=== PATIENT | female | born 1930 | race Caucasian/White ===

== ENCOUNTER → 2016-06-15 | Outpatient (CLI) | payer MEDICARE, OTHER ==
[2015-05-29 15:10] VITALS: BP 135/65
[~2016-06-15] MED LIST: BISM525O8 PO; ONDA4TAB7 PO
--- NOTE | 2016-06-15 09:08 | RAD ---
Chest, 2 views, 06/15/2016: History: Productive cough, upper back pain Comparison is made to a study from 05/29/2015. The heart size and pulmonary vascularity are normal. There are mild scattered parenchymal scars. No pulmonary consolidation is seen. There is no evidence of pleural fluid. Moderate spurring is present in the spine. IMPRESSION: No acute cardiopulmonary abnormality is detected.
== END | disposition home or self-care (01) ==
LOC: DXRADRC 07:29
PROVIDERS: ATTEND Physician Assistant
DX: R05 Cough (principal); M54.9 Dorsalgia, unspecified
CPT/HCPCS: 71020

== ENCOUNTER 2016-08-08 09:48 | Inpatient (IN) | payer MEDICARE, BC, OTHER ==
[~2016-08-08] VITALS: Ht 157.5 cm; Wt 78.1 kg
--- NOTE | 2016-08-08 10:25 | RAD ---
Indication: Chest pain. Time of exam 10:18 AM Correlation is made with prior study from 06/15/2016. FINDINGS: The heart size is normal. The lungs are clear. No pleural effusion or pneumothorax is identified. The pulmonary vascularity is normal. IMPRESSION: No acute abnormality detected.
[2016-08-08 10:26] LABS: BASO # 0.1 x10^3/uL (0.0-0.2); BASO % 1 % (0-3); EOS # 0.9 x10^3/uL (0.0-0.7); EOS % 6 % (0-3); HEMATOCRIT 38.3 % (36.0-47.0); HEMOGLOBIN 12.7 g/dL (12.0-15.5); LYMPH # 1.4 x10^3/uL (1.0-4.8); LYMPH % 9 % (24-48); MEAN CORPUSCULAR HEMOGLOBIN 31 pg (25-35); MEAN CORPUSCULAR HGB CONC 33 g/dL (31-37); MEAN CORPUSCULAR VOLUME 93 fL (79-100); MONO # 1.1 x10^3/uL (0.0-1.1); MONO % 7 % (0-9); NEUT # 11.8 x10^3uL (1.8-7.7); NEUT % 78 % (31-73); PLATELET COUNT 208 x10^3/uL (140-400); RED BLOOD COUNT 4.13 x10^6/uL (3.50-5.40); RED CELL DISTRIBUTION WIDTH 12.6 % (11.5-14.5); WHITE BLOOD COUNT 15.3 x10^3/uL (4.0-11.0)
--- NOTE | 2016-08-08 10:37 | PHYS DOC ---
Past History Past Medical History: Asthma, Hypertension Past Surgical History: Hysterectomy, Knee Replacement Smoking: Non-smoker Alcohol Use: None Drug Use: None Adult General Chief Complaint Chief Complaint: CHEST PAIN HPI HPI 85-year-old female presenting to the emergency department with chest pain started last night around midnight. She describes some left-sided chest that is nonradiating. She describes it as fluttering of the chest or palpitations associated with pain which resolved after the palpitations resolved. She then felt better with back to sleep. Upon awakening this morning her chest pain occurred. Currently her chest pain is described as a pressure radiates to the back not associated with nausea vomiting fevers or chills. She denies cough. She describes the pain is mild. Review of systems is negative for abdominal pain nausea vomiting diaphoresis. Positive for mild shortness of breath associated with her symptoms. All other review of systems is negative unless otherwise noted in history of present illness. Review of Systems Review of Systems SEE ABOVE. Current Medications Current Medications Current Medications Medications (Trade) Dose Ordered Sig/Brice Start Time Stop Time Status Last Admin Dose Admin Aspirin (Children'S Aspirin) 324 mg 1X ONCE 08/08/16 10:40 08/08/16 10:41 Allergies Allergies Allergies Coded Allergies Type Severity Reaction Last Updated Verified No Known Drug Allergies 05/29/15 No Physical Exam Physical Exam Constitutional: Well developed, well nourished, no acute distress, non-toxic appearance. HENT: Normocephalic, atraumatic, bilateral external ears normal, oropharynx moist, no oral exudates, nose normal. [] Eyes: PERRLA, EOMI, conjunctiva normal, no discharge. Neck: Normal range of motion, no tenderness, supple, no stridor. [] Cardiovascular:Heart rate regular rhythm, no murmur Lungs & Thorax: Bilateral breath sounds clear to auscultation [] Abdomen: Bowel sounds normal, soft, no tenderness, no masses, no pulsatile masses. Skin: Warm, dry, no erythema, no rash. [] Back: No tenderness, no CVA tenderness. Extremities: No tenderness, no cyanosis, no clubbing, ROM intact, no edema. No clinical evidence of DVT present. Neurologic: Alert and oriented X 3, normal motor function, normal sensory function, no focal deficits noted. Psychologic: Affect normal, judgement normal, mood normal. [] Current Patient Data Vital Signs Vital Signs Date Time Temp Pulse Resp B/P (MAP) Pulse Ox O2 Delivery O2 Flow Rate FiO2 08/08/16 09:55 97.9 86 18 97 Room Air EKG EKG [] EKG shows sinus rhythm with a regular rate. [place] is mildly leftward. Intervals are within normal limits. Not suggestive of ischemia. Radiology/Procedures Radiology/Procedures [] Course & Med Decision Making Course & Med Decision Making Pertinent Labs and Imaging studies reviewed. (See chart for details) [] 85-year-old female presenting to the emergency department today with chest pain and palpitations this started about midnight last night. Initial EKG was unremarkable with a sinus rhythm and not suggestive of ischemia. Chest x-ray taken. Blood work obtained. Otherwise troponin negative. White blood cell count mildly elevated. Nonspecific. The remainder the blood work was unremarkable. Ultrasound of the right upper quadrant was negative for acute cholecystitis. The patient was then admitted for further evaluation workup and care. Dragon Disclaimer Dragon Disclaimer This chart was dictated in whole or in part using Voice Recognition software in a busy, high-work load, and often noisy Emergency Department environment. It may contain unintended and wholly unrecognized errors or omissions. Departure Departure: Impression: Primary Impression: Chest pain Additional Impression: Palpitations Disposition: ADMITTED INPATIENT Admitting Physician: Marisela Mora Condition: STABLE Referrals: URIEL VARGAS (PCP) Problem Qualifiers SRUTHI WEEMS MD August 08, 2016 10:37
[2016-08-08] MEDS ORDERED: ASPIRIN 81 MG TAB.CHEW PO ONE (10:40)
[2016-08-08 10:49] LABS: ALBUMIN 3.1 g/dL (3.4-5.0); CALCIUM 9.5 mg/dL (8.5-10.1); CREATININE 1.4 mg/dL (0.6-1.0); DIRECT BILIRUBIN 0.2 mg/dL (0.0-0.2); GFR 35.7; POTASSIUM 4.3 mmol/L (3.5-5.1); TOTAL BILIRUBIN 0.7 mg/dL (0.2-1.0); TOTAL PROTEIN 8.1 g/dL (6.4-8.2)
[2016-08-08] MEDS ORDERED: ONDANSETRON PF 4 MG/2 ML VIAL. IV PRN (11:00)
[2016-08-08] MEDS ORDERED: NITROGLYCERIN SUBLINGUAL 0.4 MG BOTTLE OF 25. SL PRN (11:00)
[2016-08-08] MEDS ORDERED: MORPHINE SULFATE 2 MG/ML DISP.SYRIN. IV PRN (11:00)
[2016-08-08 11:05] LABS: % BANDS 2 % (0-9); % EOS 7 % (0-5); % LYMPHS 12 % (24-48); % MONOS 6 % (0-10); % SEGS 73 % (35-66)
[2016-08-08 11:06] LABS: PLATELET CLUMP PRESENT; PLT ESTIMATE ADEQUATE (ADEQUATE)
--- NOTE | 2016-08-08 12:14 | RAD ---
Indication: Right upper quadrant pain and chest pain. The pancreas and IVC are unremarkable. The liver is without discrete mass. The gallbladder is without stones or sludge. No wall thickening or pericholecystic fluid is identified. No biliary duct dilatation is identified. The right kidney is slightly small at 8.7 cm. No ascites is seen. Impression: No evidence of cholelithiasis or acute cholecystitis.
[2016-08-08 14:25] VITALS: BP 154/78
--- NOTE | 2016-08-08 14:32 | ACF ---
Admission Criteria Forms Admission Criteria Met?: No LURDES VARGAS August 08, 2016 14:32 SRUTHI WEEMS MD August 13, 2016 18:29
--- NOTE | 2016-08-08 15:32 | EKG ---
[address] [address] Test Date: 2016-08-08 Test Time: 09:58:57 Pat Name: JOEL OSUNA Department: Room: 109 A Gender: F [employer] In[employer]: : [id number] Requested By: ELIO FERNANDEZ Order Number: [id number] Reading MD: Xavi Talbert Measurements Intervals [place] Rate: 86 P: 49 WV: 160 QRS: 2 QRSD: 86 T: 23 QT: 310 QTc: 373 Interpretive Statements SINUS RHYTHM Electronically Signed On 08-14-2016 9:06:13 CDT by Xavi Talbert
[2016-08-08] MEDS ORDERED: MULT-650 PO (15:42)
[2016-08-08] MEDS ORDERED: CETI10TA16 PO (15:44)
[2016-08-08] MEDS ORDERED: CALC-56 PO (15:44)
[2016-08-08] MEDS ORDERED: METO50TA2 PO (15:46)
[2016-08-08] MEDS ORDERED: MIRA50TA PO (15:46)
[2016-08-08] MEDS ORDERED: FLUT1DIS3 IH (15:48)
[2016-08-08] MEDS ORDERED: LATA2.5D3 EACHEYE (15:48)
[2016-08-08] MEDS: IV NORMAL SALINE 1,000ML 1,000 ML IV SCH (17:52)
[2016-08-08] MEDS: ENOXAPARIN ** NOTE DOSE ** SYRINGE SQ SCH (17:52)
[2016-08-08 18:29] VITALS: BP 163/77
--- NOTE | 2016-08-08 19:38 | HP ---
ADMIT DATE: 08/08/2016 HISTORY OF PRESENT ILLNESS: The patient is an 85-year-old female patient who came to the Emergency Room with a complaint of chest pain that started last night around midnight. She describes it as some left-sided chest pain, described as fluttering of the chest, palpitation associated with pain which resolved after the palpitation has resolved. She then felt better, went back to sleep and upon awakening this morning, her chest pain occurred. Currently, her chest pain is described as a pressure, radiates to the back, not associated with nausea, vomiting, fever or chills. She denied any cough. She described the pain is now about 4/10. She denied any nausea or vomiting, denied any radiation of the pain to the left arm, left shoulder or left-sided neck or left jaw. She was evaluated in the Emergency Room, was found to have leukocytosis with a white cell count of 15,300. Her chest x-ray was interpreted as unremarkable with no acute pulmonary abnormality and she is complaining of pain in her right shoulder. She did have an abdominal ultrasound, which showed the pancreas and IVC are unremarkable. The liver is without discrete mass. The gallbladder is without stones or sludge. No wall thickening or pericholecystic fluid identified. No biliary duct dilatation identified. The right kidney is small about 8.7 cm. No ascites seen. The patient was admitted to rule out myocardial infarction. Her first troponin was less than 0.017. Her EKG showed that she was in sinus rhythm that is with regular rate, mildly leftward, all the intervals are within normal limits and no ST segment elevation or depression. PAST MEDICAL HISTORY: Significant for bronchial asthma and hypertension. PAST SURGICAL HISTORY: Significant for left total knee arthroplasty, skin cancer removed from the left side of the nose, she had total abdominal hysterectomy and bilateral cataract extraction. ALLERGIES: She has no known drug allergies. MEDICATIONS: She is currently on following medications: She is on calcium carbonate with vitamin D one tablet once a day, cetirizine 10 mg once a day, Advair Diskus 250/50 one puff once a day, latanoprost 1 drop to both eyes at bedtime, metoprolol tartrate 50 mg once a day, Myrbetriq 50 mg at bedtime and multivitamin with mineral 1 tablet once a day. FAMILY HISTORY: She has 3 sisters. They are still alive. All her brothers are . Her father at the age of 86 because of old age. Mother at age of 57 because of uterine cancer. She lives at home on her own. SOCIAL HISTORY: She has never smoked, does not drink alcohol or use recreational drugs. She worked for the ____ for almost 30 years according to her. REVIEW OF SYSTEMS: The patient had bilateral cataract extractions and she has glaucoma, but denied any senile macular degeneration. She has bilateral sensorineural deafness, requiring bilateral hearing aids. She denied any nosebleeds, stuffy nose or postnasal drip. Denied any sore throat, sore tongue, toothache, hoarseness of voice or difficulty swallowing. She denied any nausea, vomiting, diarrhea or constipation. Denied any hematemesis, melena or hematochezia. Denied any dysuria, frequency or hematuria. PHYSICAL EXAMINATION: GENERAL: When I examined her, she was resting slightly propped up in bed, clearly tachypneic, clearly she was pale, but no jaundice, cyanosis, or thyromegaly. No jugular venous distention. No limb edema. VITAL SIGNS: Her heart rate was 86, blood pressure was 177/82, temperature was 97.9, respiratory rate was 18 and oxygen saturation was 95% on room air. HEAD, EYES, EARS, NOSE AND THROAT: Showed normocephalic, atraumatic. NECK: Supple. HEART: Showed normal first and second heart sounds with no gallop, rub or murmur. CHEST: Shows central trachea, equally reduced expansion, reduced air entry with few scattered rhonchi. I could not appreciate any crepitation. ABDOMEN: Distended, soft, nontender. No guarding or rigidity. No organomegaly. All hernial orifices intact. Bowel sounds normal. NEUROLOGIC: She was very hard of hearing, but otherwise, her cranial nerves are intact. She moves her extremities without difficulty. She normally ambulates with a cane and is fairly independent. LABORATORY DATA: Her lab work on admission showed a serum sodium 138, potassium 4.3, chloride 100, bicarbonate 30, anion gap of 8, BUN 24, creatinine 1.4, estimated GFR was 36 mL per minute. Her glucose was 128, calcium was 9.5. Total bilirubin, AST, ALT, alkaline phosphatase were normal. Her total protein was 8.1, albumin was 3.1. First set of cardiac enzyme showed troponin to be less than 0.017. Her white cell count was 15,300, hemoglobin 12.7, hematocrit 38.3, MCV 93 and platelet count 208,000. Her chest x-ray was interpreted as showing the heart size is normal. The lungs are clear. No pleural effusion or pneumothorax is identified. The pulmonary vascularity is normal with no acute abnormality detected. She did have abdominal ultrasound, which showed that the pancreas and IVC are unremarkable. The liver is without discrete mass. The gallbladder is without stones or sludge, no wall thickening or pericholecystic fluid identified, no biliary duct dilatation identified. The right kidney is slightly small at 8.7 cm, no ascites is seen indicating no evidence of cholelithiasis or acute cholecystitis. ASSESSMENT AND PLAN: I am somewhat concerned that she seemed to be more short of breath than what the x-ray shows. Her kidney function unfortunately is abnormal with an estimated GFR of only 35 mL make it a higher risk for doing a CT angio. I will arrange for her to have bilateral lower extremity venous Doppler ultrasound as well as V/Q scan. I will start her on IV fluid and hydrate her gently and I will also order the D-dimer and we will decide on further management accordingly. We will do 2 more sets of cardiac enzyme and decide on further management accordingly. ELIO FERNANDEZ MD DR: DELFINO/haris JOB#: [id number] / [id number]
[2016-08-08] MEDS: LATANOPROST 0.005% OPHTH SOLUTION 2.5ML BOTTLE. OU SCH (20:26)
[2016-08-08] MEDS: IPRATRPIUM/ALBUTEROL 0.5/2.5MG 3 ML NEBU. NEB SCH (20:57)
[2016-08-08] MEDS: methylPREDNISolone SOD SUCC PF 40 MG/ML VIAL. IV SCH (21:35)
[2016-08-09] MEDS: IV NORMAL SALINE 1,000ML 1,000 ML IV SCH ×2 (04:21→21:33)
[2016-08-09 05:00] VITALS: BP 131/72
[2016-08-09] MEDS: methylPREDNISolone SOD SUCC PF 40 MG/ML VIAL. IV SCH ×3 (05:07→21:33)
[2016-08-09] MEDS: IPRATRPIUM/ALBUTEROL 0.5/2.5MG 3 ML NEBU. NEB SCH ×5 (05:26→20:59)
[2016-08-09 06:30] LABS: BASO % 0 % (0-3); EOS % 0 % (0-3); HEMATOCRIT 34.7 % (36.0-47.0); HEMOGLOBIN 11.8 g/dL (12.0-15.5); LYMPH # 0.9 x10^3/uL (1.0-4.8); LYMPH % 8 % (24-48); MEAN CORPUSCULAR HEMOGLOBIN 31 pg (25-35); MEAN CORPUSCULAR HGB CONC 34 g/dL (31-37); MEAN CORPUSCULAR VOLUME 92 fL (79-100); MONO # 0.2 x10^3/uL (0.0-1.1); MONO % 2 % (0-9); NEUT # 9.1 x10^3uL (1.8-7.7); NEUT % 90 % (31-73); PLATELET COUNT 196 x10^3/uL (140-400); RED BLOOD COUNT 3.79 x10^6/uL (3.50-5.40); RED CELL DISTRIBUTION WIDTH 12.6 % (11.5-14.5); WHITE BLOOD COUNT 10.1 x10^3/uL (4.0-11.0)
[2016-08-09 06:46] LABS: CALCIUM 8.9 mg/dL (8.5-10.1); GFR 52.6; POTASSIUM 4.9 mmol/L (3.5-5.1)
--- NOTE | 2016-08-09 07:40 | RAD ---
Exam performed: Bilateral lower extremity venous Doppler. Clinical Indication: Shortness of air and chest pain , bilateral lower extremity venous stripping Date of Service:08/08/16 Comparison : None available Discussion: Multiple longitudinal and transverse high resolution real-time images of the venous system of bilateral lower extremity were obtained with color and Doppler sampling and spectral analysis. The common femoral, superficial femoral, popliteal and proximal calf veins are all patent and demonstrate normal flow and compressibility. Normal respiratory phasicity and augmentation is present. Impression: Normal color duplex ultrasound of the venous system of bilateral lower extremity.
--- NOTE | 2016-08-09 07:41 | RAD ---
Exam performed: Nuclear medicine ventilation/perfusion scan. Date of Service: 08/08/16. A chest x-ray performed earlier on the same day was also reviewed. Clinical Indication: Shortness of air for one day. Patient woke up last night with shortness of air and chest pain, history of hypertension. Discussion: Patient was administered 10.0 mCi of xenon-133 and images of the chest were obtained via the gamma camera during inspiration, equilibrium and washout phase. There is symmetric distribution of radiotracer throughout both lungs with symmetric excretion on washout images. Patient was also given 6.6 mCi of technetium 99 MAA and perfusion images of the chest are obtained in various projections. There is symmetric distribution of radiotracer without any photopenic area. No matched or mismatched abnormalities detected. Impression: 1. According to the PIOPED criteria, the study is negative for pulmonary embolism.
[2016-08-09] MEDS ORDERED: METOPROLOL TART IMMED RELEASE 50 MG TABLET PO SCH (09:00)
--- NOTE | 2016-08-09 09:37 | PDOC2 ---
TIFFANY GENAO [employer] 08/09/16 0937: CONSULT Date of Admission DATE: 08/09/16 TIME: 09:34 Reason for Consult: cp, palpitations Problem List Problems Medical Problems: (1) Chest pain Status: Acute (2) Palpitations Status: Acute History of Present Illness Ms Hilliard is an 85 year old female who presents with complaints of palpitations and chest discomfort. She reports a feeling like her heart racing that woke her from sleep on Sunday. She got out of bed but sensation did not resolve. She had associated shortness of breath and felt like she could not take a deep breath. She then began to have discomfort that radiated from her left mid axillary area, beneath her breast to the right side and into her back. The discomfort was not increased with exertion or position change. She reports that the discomfort is still mildly present in her back. She also reports occasional chest pressure and feeling like she needs to burp. she denies any prior palpitations, lightheadedness or syncope. She denies problems with functional capacity, still goes shopping and is able to walk 1 flight of stairs before she has discomfort in her knee. Cardiovascular: HTN Pulmonary: Asthma Past Surgical History: Cataract Removal, Total knee replacement, Hysterectomy, Other (skin cancer removed from her nose) Family History non contributory due to age Social History non smoker, no significant ETOH, no illicit drugs Current Medications Current Medications Aspirin (Children'S Aspirin) 324 mg 1X ONCE PO Last administered on 08/08/16 10:32; Start 08/08/16 at 10:40; Stop 08/08/16 at 10:41; Status DC Ondansetron HCl (Zofran) 4 mg PRN Q4HRS PRN IV NAUSEA/VOMITING; Start 08/08/16 at 11:00; Stop 08/09/16 at 10:59 Morphine Sulfate (Morphine 2mg Syringe) 2 mg PRN Q2HR PRN IV PAIN Last administered on 08/08/16 20:00; Start 08/08/16 at 11:00; Stop 08/09/16 at 10:59 Nitroglycerin (Nitrostat) 0.4 mg PRN Q5MIN PRN SL CHEST PAIN; Start 08/08/16 at 11:00; Stop 08/09/16 at 10:59 Calcium/Vitamin D (Oscal D 500mg/ 200uts) 1 tab DAILY PO ; Start 08/09/16 at 09: 00 Cetirizine HCl (Zyrtec) 10 mg DAILY PO ; Start 08/09/16 at 09:00 Latanoprost (Xalatan) 1 drop QHS OU Last administered on 08/08/16 20:26; Start 08/08/16 at 21:00 Metoprolol Tartrate (Lopressor) 50 mg DAILY PO ; Start 08/09/16 at 09:00 Multivitamins/ Minerals (I-Taras) 1 tab DAILY PO ; Start 08/09/16 at 09:00 Sodium Chloride 1,000 ml @ 75 mls/hr [id number] IV Last administered on 04:21; Start 08/08/16 at 16:30 Albuterol/ Ipratropium (Duoneb) 3 ml RTQID NEB Last administered on 08/09/16 05:30; Start 08/08/16 at 20:00 Methylprednisolone Sodium Succinate (Solu-Medrol 40mg Vial) 40 mg Q8HRS IV Last administered on 08/09/16 05:07; Start 08/08/16 at 22:00 Enoxaparin Sodium (Lovenox 80mg Syringe) 80 mg Q24H SQ Last administered on 08/08 17:52; Start 08/08/16 at 16:30 Active Scripts Active Reported Latanoprost 2.5 Ml Drops 1 Drop EACHEYE QHS Advair 250-50 Diskus (Fluticasone/Salmeterol) 1 Each Disk.w.dev 1 Puff IH PRN PRN Myrbetriq (Mirabegron) 50 Mg Tab.er.24h 50 Mg PO QHS Metoprolol Tartrate 50 Mg Tablet 1 Tab PO DAILY Cetirizine Hcl 10 Mg Tablet 1 Tab PO DAILY Calcium 500 + Vit D 200 Caplet (Calcium Carbonate/Vitamin D3) 1 Each Tablet 1 Each PO DAILY Centrum Silver Women Tablet (Multivits-Min/Iron/FA/Lutein) 1 Each Tablet 1 Each PO DAILY Allergies: Coded Allergies: No Known Drug Allergies (Unverified , 05/29/15) Review of System as per HPI General: Alert, Oriented X3, Cooperative, No acute distress HEENT: Atraumatic, EOMI, Mucous membr. moist/pink Lungs: Clear to auscultation, Normal air movement Heart: Regular rate, Normal S1, Normal S2, Other (no obvious murmurs, no gallops, clicks or rubs) Abdomen: Normal bowel sounds, Soft, No tenderness Extremities: No cyanosis, Normal pulses, Other (trace edema) Neuro: Normal speech, Strength at 5/5 X4 ext, Cranial nerves 3-12 NL Psych/Mental Status: Mental status NL, Mood NL VITALS Vital Signs Date Time Temp Pulse Resp B/P (MAP) Pulse Ox O2 Delivery O2 Flow Rate FiO2 08/09/16 07:26 Room Air 08/09/16 05:00 97.7 74 18 131/72 (91) 96 Labs Laboratory Tests Test 08/08/16 10:10 08/08/16 15:50 08/08/16 21:55 08/09/16 06:04 White Blood Count 15.3 x10^3/uL (4.0-11.0) 10.1 x10^3/uL (4.0-11.0) Red Blood Count 4.13 x10^6/uL (3.50-5.40) 3.79 x10^6/uL (3.50-5.40) Hemoglobin 12.7 g/dL (12.0-15.5) 11.8 g/dL (12.0-15.5) Hematocrit 38.3 % (36.0-47.0) 34.7 % (36.0-47.0) Mean Corpuscular Volume 93 fL (79-100) 92 fL (79-100) Mean Corpuscular Hemoglobin 31 pg (25-35) 31 pg (25-35) Mean Corpuscular Hemoglobin Concent 33 g/dL (31-37) 34 g/dL (31-37) Red Cell Distribution Width 12.6 % (11.5-14.5) 12.6 % (11.5-14.5) Platelet Count 208 x10^3/uL (140-400) 196 x10^3/uL (140-400) Neutrophils (%) (Auto) 78 % (31-73) 90 % (31-73) Lymphocytes (%) (Auto) 9 % (24-48) 8 % (24-48) Monocytes (%) (Auto) 7 % (0-9) 2 % (0-9) Eosinophils (%) (Auto) 6 % (0-3) 0 % (0-3) Basophils (%) (Auto) 1 % (0-3) 0 % (0-3) Neutrophils # (Auto) 11.8 x10^3uL (1.8-7.7) 9.1 x10^3uL (1.8-7.7) Lymphocytes # (Auto) 1.4 x10^3/uL (1.0-4.8) 0.9 x10^3/uL (1.0-4.8) Monocytes # (Auto) 1.1 x10^3/uL (0.0-1.1) 0.2 x10^3/uL (0.0-1.1) Eosinophils # (Auto) 0.9 x10^3/uL (0.0-0.7) 0.0 x10^3/uL (0.0-0.7) Basophils # (Auto) 0.1 x10^3/uL (0.0-0.2) 0.0 x10^3/uL (0.0-0.2) Segmented Neutrophils % 73 % (35-66) Band Neutrophils % 2 % (0-9) Lymphocytes % 12 % (24-48) Monocytes % 6 % (0-10) Eosinophils % 7 % (0-5) Platelet Estimate Adequate (ADEQUATE) Platelet Clumps, EDTA Present Large Platelets Occ Giant Platelets Occ Sodium Level 138 mmol/L (136-145) 137 mmol/L (136-145) Potassium Level 4.3 mmol/L (3.5-5.1) 4.9 mmol/L (3.5-5.1) Chloride Level 100 mmol/L (98-107) 102 mmol/L (98-107) Carbon Dioxide Level 30 mmol/L (21-32) 27 mmol/L (21-32) Anion Gap 8 (6-14) 8 (6-14) Blood Urea Nitrogen 24 mg/dL (7-20) 22 mg/dL (7-20) Creatinine 1.4 mg/dL (0.6-1.0) 1.0 mg/dL (0.6-1.0) Estimated GFR (Cockcroft-Gault) 35.7 52.6 Glucose Level 128 mg/dL (70-99) 161 mg/dL (70-99) Calcium Level 9.5 mg/dL (8.5-10.1) 8.9 mg/dL (8.5-10.1) Total Bilirubin 0.7 mg/dL (0.2-1.0) Direct Bilirubin 0.2 mg/dL (0.0-0.2) Aspartate Amino Transf (AST/SGOT) 9 U/L (15-37) Alanine Aminotransferase (ALT/SGPT) 13 U/L (14-59) Alkaline Phosphatase 82 U/L (46-116) Troponin I Quantitative < 0.017 ng/mL (0-0.055) < 0.017 ng/mL (0-0.055) < 0.017 ng/mL (0-0.055) Total Protein 8.1 g/dL (6.4-8.2) Albumin 3.1 g/dL (3.4-5.0) Lipase 92 U/L (73-393) D-Dimer (Karina) 5.59 mg/L (0.00-0.50) Images EKG - sinus rhythm, early transition, no acute st/t abn. CXR - no acute abn VQ scan - Impression: 1. According to the PIOPED criteria, the study is negative for pulmonary embolism. Lower ext US- Impression: Normal color duplex ultrasound of the venous system of bilateral lower extremity. Assessment/Plan 1. chest pain - [place] ruled out. check echo for LV function and wall motion. If no significant abnormalities could have MPI as outpatient. 2. palpitations - suggest outpatient event monitoring. 3. hypertension - resume home medications. Change metoprolol to succinate for daily dosing. 4. unknown lipid status, check lipids Problems: RAJESH BAILEY MD 08/10/16 1636: CONSULT Allergies: Coded Allergies: No Known Drug Allergies (Unverified , 05/29/15) Assessment/Plan Late entry for 08/09/2016 Pt. seen and examined. 85 y.o woman with palpitations. Normal echo. normal cardiac exam will f/u on outpt basis if she has recurrence. No [place] by labs Problems: TIFFANY GENAO APRN August 09, 2016 09:37 RAJESH BAILEY MD August 10, 2016 16:36
[2016-08-09] MEDS: MULTIVITAMIN I-VITE TABLET. PO SCH (10:30)
[2016-08-09] MEDS: CETIRIZINE HCL 10 MG TABLET PO SCH (10:30)
[2016-08-09] MEDS: CALCIUM CARB/VIT D3 500/200 TABLET PO SCH (10:30)
[2016-08-09 10:50] VITALS: BP 160/73
--- NOTE | 2016-08-09 12:15 | CARD ---
APPROVED REPORT EXAM: Two-dimensional and M-mode echocardiogram with Doppler and color Doppler. Other Information Quality : Average Rhythm : NSR INDICATION Chest Pain 2D DIMENSIONS RVDd2.3 (2.9-3.5cm)Left Atrium(2D)3.1 (1.6-4.0cm) IVSd1.2 (0.7-1.1cm)Aortic Root(2D)3.1 (2.0-3.7cm) LVDd3.6 (3.9-5.9cm)LVOT Diameter2.0 (1.8-2.4cm) PWd1.2 (0.7-1.1cm)LVDs2.6 (2.5-4.0cm) FS (%) 27.8 %SV29.3 ml LVEF(%)54.8 (>50%) Aortic Valve AoV Peak Forrest.152.2cm/sAoV VTI39.0cm AO Peak GR.9.3mmHgLVOT Peak Forrest.113.0cm/s LVOT VTI 32.07cmAO Mean GR.5mmHg KAE (VMAX)2.95iq8CCK (VTI)2.56cm2 Mitral Valve MV E Iiigvzlh451.7cm/sMV DECEL QPCQ512bg MV A Wiclnnhy699.5cm/sMV CVM05dl E/A Ratio0.7MV A Enwbdfub344oa MVA (PHT)3.28cm2 Tricuspid Valve TR P. Zednrqfq787yt/sRAP TNGFFSJR4dhMg TR Peak Gr.31lzRkJVSC09ejBf LEFT VENTRICLE The left ventricle is normal size. There is borderline concentric left ventricular hypertrophy. Left ventricle systolic function is normal. The Ejection Fraction is 50-55%. There is normal LV segmental wall motion. Tissue Doppler imaging reveals mild left ventricular diastolic dysfunction. RIGHT VENTRICLE The right ventricle is normal size. The right ventricular systolic function is normal. ATRIA The left atrium size is normal. The right atrium size is normal. The interatrial septum is intact wit h no evidence for an atrial septal defect or patent foramen ovale as noted on 2-D or Doppler imaging. AORTIC VALVE The aortic valve is mildly sclerotic. The aortic valve is trileaflet. Doppler and Color Flow revealed no significant aortic regurgitation. There is no significant aortic valvular stenosis. MITRAL VALVE Mitral annular calcification is moderate. There is no mitral valve stenosis. Doppler and Color Flow r evealed trace mitral regurgitation. TRICUSPID VALVE The tricuspid valve is not well visualized. Doppler and Color Flow revealed trace to mild tricuspid r egurgitation. The PA pressure was estimated at 38 mmHg. There is no tricuspid valve stenosis. PULMONIC VALVE The pulmonic valve is not well visualized. Doppler and Color Flow revealed no pulmonic valvular regur gitation. There is no pulmonic valvular stenosis. GREAT VESSELS The aortic root is normal in size. Pulmonary veins not recorded. The IVC is normal in size and collap ses<50% with inspiration. PERICARDIAL EFFUSION There is no evidence of significant pericardial effusion. Critical Notification Critical Value: No <Conclusion> Left ventricle systolic function is normal. The Ejection Fraction is 50-55%. There is normal LV segmental wall motion.
[2016-08-09] MEDS ORDERED: IOHEXOL 300 MG/ML 75 ML VIAL. IV ONE (13:45)
--- NOTE | 2016-08-09 14:40 | RAD ---
Indication: Shortness of breath and elevated d-dimer. Axial imaging through the chest was performed after the administration of intravenous contrast and utilizing the CT angiography protocol. Multiplanar, 3-D and MIP reformations were also performed. Evaluation of the pulmonary arterial system is without evidence of thromboembolism. No filling defects are detected. The thoracic aorta is normal caliber. No dissection is seen. No pericardial effusion is identified. There is a trace right and small left pleural effusion. No axillary, hilar or mediastinal lymphadenopathy is identified. Small lymph nodes are noted in the kirstin bilaterally. Minimal peripheral interstitial changes are noted, likely owing to scarring. There is some mild consolidation in the posterior lower lobes bilaterally consistent with atelectasis or pneumonia. The upper abdomen is unremarkable. Impression: 1. No evidence of pulmonary embolism or thoracic aortic dissection. 2. Bilateral pleural effusions with bibasilar infiltrates or atelectasis, left greater. PQRS Compliance Statement: One or more of the following individualized dose reduction techniques were utilized for this examination: 1. Automated exposure control 2. Adjustment of the mA and/or kV according to patient size 3. Use of iterative reconstruction technique
[2016-08-09] MEDS ORDERED: AZITHROMYCIN 250 MG TABLET. PO ONE (15:30)
[2016-08-09] MEDS: ENOXAPARIN ** NOTE DOSE ** SYRINGE SQ SCH (15:40)
[2016-08-09 16:25] VITALS: BP 153/63
[2016-08-09 19:05] VITALS: BP 160/75
[2016-08-09] MEDS: LATANOPROST 0.005% OPHTH SOLUTION 2.5ML BOTTLE. OU SCH (21:34)
[2016-08-09 23:17] VITALS: BP 121/55
[2016-08-10] MEDS: methylPREDNISolone SOD SUCC PF 40 MG/ML VIAL. IV SCH (05:25)
[2016-08-10] MEDS: IPRATRPIUM/ALBUTEROL 0.5/2.5MG 3 ML NEBU. NEB SCH ×2 (05:29→09:54)
[2016-08-10 05:35] VITALS: BP 152/74
[2016-08-10 06:25] LABS: HEMATOCRIT 32.6 % (36.0-47.0); HEMOGLOBIN 10.9 g/dL (12.0-15.5); RED BLOOD COUNT 3.57 x10^6/uL (3.50-5.40); RED CELL DISTRIBUTION WIDTH 12.5 % (11.5-14.5); WHITE BLOOD COUNT 14.9 x10^3/uL (4.0-11.0)
[2016-08-10 06:39] LABS: CALCIUM 8.6 mg/dL (8.5-10.1); GFR 52.6; POTASSIUM 4.5 mmol/L (3.5-5.1)
[2016-08-10] MEDS ORDERED: METOPROLOL SUCC 24HR ER 50 MG TAB.ER.24H. PO SCH (09:00)
[2016-08-10] MEDS: CALCIUM CARB/VIT D3 500/200 TABLET PO SCH (09:07)
[2016-08-10] MEDS: CETIRIZINE HCL 10 MG TABLET PO SCH (09:08)
[2016-08-10] MEDS: MULTIVITAMIN I-VITE TABLET. PO SCH (09:08)
--- NOTE | 2016-08-10 10:40 | PDOC ---
PROGRESS NOTES Diagnosis Problem Problems Medical Problems: (1) Chest pain Status: Acute (2) Palpitations Status: Acute Assessment Problems Medical Problems: (1) Chest pain Status: Acute (2) Palpitations Status: Acute 1. chest pain - MA ruled out. LVEF and wall motion normal. 2. palpitations - suggest outpatient event monitoring. 3. hypertension - fair control, add low dose ACEI 4. unknown lipid status - lipids pending 5. pneumonia - per PCP Problems: Subjective no new complaints Objective Vital Signs Date Time Temp Pulse Resp B/P (MAP) Pulse Ox O2 Delivery O2 Flow Rate FiO2 08/10/16 09:54 Room Air 08/10/16 09:11 78 152/74 08/10/16 05:35 97.6 18 97 Intake and Output 08/10/16 07:00 Intake Total 2275.94 ml Output Total 650 ml Balance 1625.94 ml Intake Oral 830 ml IV Total 1445.94 ml Output Urine Total 650 ml Abdomen: Normal bowel sounds, Soft, No tenderness Heart: Regular rate, Normal S1, Normal S2, No murmurs, Other (no gallops, clicks or rubs) Extremities: No cyanosis, Normal pulses General: Alert, Oriented X3, Cooperative, No acute distress HEENT: Atraumatic, EOMI Lungs: Other (crackles right bases) Neuro: Normal speech, Strength at 5/5 X4 ext Psych/Mental Status: Mental status NL, Mood NL Review of Relevant I have reviewed the following items clarice (where applicable) has been applied. Labs Laboratory Tests Test 08/08/16 15:50 08/08/16 21:55 08/09/16 06:04 08/10/16 06:00 D-Dimer (Karina) 5.59 mg/L (0.00-0.50) Troponin I Quantitative < 0.017 ng/mL (0-0.055) < 0.017 ng/mL (0-0.055) White Blood Count 10.1 x10^3/uL (4.0-11.0) 14.9 x10^3/uL (4.0-11.0) Red Blood Count 3.79 x10^6/uL (3.50-5.40) 3.57 x10^6/uL (3.50-5.40) Hemoglobin 11.8 g/dL (12.0-15.5) 10.9 g/dL (12.0-15.5) Hematocrit 34.7 % (36.0-47.0) 32.6 % (36.0-47.0) Mean Corpuscular Volume 92 fL (79-100) 92 fL (79-100) Mean Corpuscular Hemoglobin 31 pg (25-35) 31 pg (25-35) Mean Corpuscular Hemoglobin Concent 34 g/dL (31-37) 33 g/dL (31-37) Red Cell Distribution Width 12.6 % (11.5-14.5) 12.5 % (11.5-14.5) Platelet Count 196 x10^3/uL (140-400) 217 x10^3/uL (140-400) Neutrophils (%) (Auto) 90 % (31-73) Lymphocytes (%) (Auto) 8 % (24-48) Monocytes (%) (Auto) 2 % (0-9) Eosinophils (%) (Auto) 0 % (0-3) Basophils (%) (Auto) 0 % (0-3) Neutrophils # (Auto) 9.1 x10^3uL (1.8-7.7) Lymphocytes # (Auto) 0.9 x10^3/uL (1.0-4.8) Monocytes # (Auto) 0.2 x10^3/uL (0.0-1.1) Eosinophils # (Auto) 0.0 x10^3/uL (0.0-0.7) Basophils # (Auto) 0.0 x10^3/uL (0.0-0.2) Sodium Level 137 mmol/L (136-145) 140 mmol/L (136-145) Potassium Level 4.9 mmol/L (3.5-5.1) 4.5 mmol/L (3.5-5.1) Chloride Level 102 mmol/L (98-107) 106 mmol/L (98-107) Carbon Dioxide Level 27 mmol/L (21-32) 25 mmol/L (21-32) Anion Gap 8 (6-14) 9 (6-14) Blood Urea Nitrogen 22 mg/dL (7-20) 27 mg/dL (7-20) Creatinine 1.0 mg/dL (0.6-1.0) 1.0 mg/dL (0.6-1.0) Estimated GFR (Cockcroft-Gault) 52.6 52.6 Glucose Level 161 mg/dL (70-99) 180 mg/dL (70-99) Calcium Level 8.9 mg/dL (8.5-10.1) 8.6 mg/dL (8.5-10.1) Medications Current Medications Aspirin (Children'S Aspirin) 324 mg 1X ONCE PO Last administered on 08/08/16 10:32; Start 08/08/16 at 10:40; Stop 08/08/16 at 10:41; Status DC Ondansetron HCl (Zofran) 4 mg PRN Q4HRS PRN IV NAUSEA/VOMITING; Start 08/08/16 at 11:00; Stop 08/09/16 at 10:59; Status DC Morphine Sulfate (Morphine 2mg Syringe) 2 mg PRN Q2HR PRN IV PAIN Last administered on 08/08/16 20:00; Start 08/08/16 at 11:00; Stop 08/09/16 at 10:59; Status DC Nitroglycerin (Nitrostat) 0.4 mg PRN Q5MIN PRN SL CHEST PAIN; Start 08/08/16 at 11:00; Stop 08/09/16 at 10:59; Status DC Calcium/Vitamin D (Oscal D 500mg/ 200uts) 1 tab DAILY PO Last administered on 09:07; Start 08/09/16 at 09:00 Cetirizine HCl (Zyrtec) 10 mg DAILY PO Last administered on 08/10/16 09:08; Start 08/09/16 at 09:00 Latanoprost (Xalatan) 1 drop QHS OU Last administered on 08/09/16 21:34; Start 08/08/16 at 21:00 Metoprolol Tartrate (Lopressor) 50 mg DAILY PO Last administered on 08/09/16 10:30; Start 08/09/16 at 09:00; Stop 08/10/16 at 08:59; Status DC Multivitamins/ Minerals (I-Taras) 1 tab DAILY PO Last administered on 08/10/16 09:08; Start 08/09/16 at 09:00 Sodium Chloride 1,000 ml @ 75 mls/hr [id number] IV Last administered on 21:33; Start 08/08/16 at 16:30 Albuterol/ Ipratropium (Duoneb) 3 ml RTQID NEB Last administered on 08/10/16 09:54; Start 08/08/16 at 20:00 Methylprednisolone Sodium Succinate (Solu-Medrol 40mg Vial) 40 mg Q8HRS IV Last administered on 08/10/16 05:25; Start 08/08/16 at 22:00 Enoxaparin Sodium (Lovenox 80mg Syringe) 80 mg Q24H SQ Last administered on 15:40; Start 08/08/16 at 16:30; Stop 08/09/16 at 15:49; Status DC Iohexol (Omnipaque 300 Mg/ml) 75 ml 1X ONCE IV Last administered on 08/09/16 14:20; Start 08/09/16 at 13:45; Stop 08/09/16 at 13:46; Status DC Ceftriaxone Sodium 1 gm/ Sodium Chloride 50 ml @ 100 mls/hr Q24H IV Last administered on 08/09/16 15:36; Start 08/09/16 at 16:00 Azithromycin (Zithromax) 500 mg 1X ONCE PO Last administered on 08/09/16 15: 36; Start 08/09/16 at 15:30; Stop 08/09/16 at 15:31; Status DC Enoxaparin Sodium (Lovenox) 40 mg Q24H SQ ; Start 08/10/16 at 16:00 Metoprolol Succinate (Toprol Xl) 50 mg DAILY PO Last administered on 08/10/16 09:11; Start 08/10/16 at 09:00 Active Scripts Active Reported Latanoprost 2.5 Ml Drops 1 Drop EACHEYE QHS Advair 250-50 Diskus (Fluticasone/Salmeterol) 1 Each Disk.w.dev 1 Puff IH PRN PRN Myrbetriq (Mirabegron) 50 Mg Tab.er.24h 50 Mg PO QHS Metoprolol Tartrate 50 Mg Tablet 1 Tab PO DAILY Cetirizine Hcl 10 Mg Tablet 1 Tab PO DAILY Calcium 500 + Vit D 200 Caplet (Calcium Carbonate/Vitamin D3) 1 Each Tablet 1 Each PO DAILY Centrum Silver Women Tablet (Multivits-Min/Iron/FA/Lutein) 1 Each Tablet 1 Each PO DAILY Vitals/I & O Vital Sign - Last 24 Hours 08/09/16 08/09/16 08/09/16 08/09/16 10:50 11:23 16:04 16:25 Temp 98.2 98.1 Pulse 79 79 Resp 20 18 B/P (MAP) 160/73 (102) 153/63 (93) Pulse Ox 92 93 O2 Delivery Room Air Room Air Room Air Room Air 08/09/16 08/09/16 08/09/16 08/09/16 19:05 19:05 21:00 23:17 Temp 98.6 97.7 Pulse 82 102 Resp 20 20 B/P (MAP) 160/75 (103) 121/55 (77) Pulse Ox 94 96 O2 Delivery Room Air Room Air Room Air Room Air 08/10/16 08/10/16 08/10/16 08/10/16 05:29 05:35 09:11 09:54 Temp 97.6 Pulse 78 78 Resp 18 B/P (MAP) 152/74 (100) 152/74 Pulse Ox 97 O2 Delivery Room Air Room Air Room Air Intake and Output 08/09/16 08/09/16 08/10/16 15:00 23:00 07:00 Intake Total 1289.94 ml 986 ml Output Total 150 ml 500 ml Balance 1139.94 ml 486 ml TIFFANY GENAO APRN August 10, 2016 10:40
[2016-08-10 11:10] VITALS: BP 162/88
[2016-08-10] MEDS ORDERED: AZIT250T PO (12:18)
[2016-08-10] MEDS ORDERED: CEFP200T PO (12:18)
[2016-08-10] MEDS ORDERED: ENOXAPARIN 40 MG/0.4 ML DISP.SYRIN. SQ SCH (16:00)
--- NOTE | 2016-08-10 18:04 | DS ---
DATE OF DISCHARGE: 08/10/2016 HOSPITAL COURSE: The patient is an 85-year-old female patient who came complaining of palpitation and chest discomfort. She stated her heart is racing that woke her from sleep on Sunday. She got out of the bed, the sensation did not resolve. She had associated shortness of breath and felt like that she could not take a deep breath. She was having discomfort that radiates from her left mid axillary area beneath her breast to the right side and into her back. Discomfort was not increased with exertion or position change. She basically was admitted and was extensively investigated with 3 sets of cardiac enzymes that were negative. She has had an echocardiogram that showed that her left ventricular systolic function was normal, ejection fraction of 50 to 55%. There is normal left ventricular segmental wall motion. Initially, her creatinine was slightly elevated, so we did bilateral lower extremity venous Doppler ultrasounds that were negative for DVT and her pulmonary ventilation perfusion was also low, was negative for pulmonary embolism. Once her creatinine has improved, we did a CT scan of the chest, which showed that she has no evidence of pulmonary embolism or thoracic aortic dissection; however, some bilateral pleural effusions and bilateral infiltrate or atelectasis, left greater than right. We did start her on Solu-Medrol 40 mg IV q.8 hourly, nebulized albuterol and Atrovent, started also on Rocephin and Zithromax. She did actually very well. PHYSICAL EXAMINATION: GENERAL: When I saw her today, she was sitting comfortably, eating her lunch, in no apparent distress. On questioning her, denied any complaint. The nursing staff did not voice any concern, stated that she had uneventful night, the only complaint is some tremors in her hands, probably induced by the inhalers. When I examined her, she looked well and was clearly in no apparent respiratory distress. VITAL SIGNS: Her heart rate was 102, blood pressure 162/88, temperature was 97.6, respiratory rate 20 and oxygen saturation was 93%. HEAD, EYES, EARS, NOSE AND THROAT: Showed normocephalic, atraumatic. NECK: Supple. HEART: Showed normal first and second heart sounds with no gallop, rub or murmur. CHEST: Clear to auscultation. I could not appreciate any crepitation or rhonchi. ABDOMEN: Distended, soft, nontender. No guarding or rigidity. No organomegaly. All hernial orifices intact. Bowel sounds normal. NEUROLOGIC: She was hard of hearing. Otherwise, her cranial nerves are intact. She ambulates with a cane without any assistance. Her intake over the last 24 hours was 2275, output was 650. LABORATORY DATA: Showed serum sodium 140, potassium 4.5, chloride 106, bicarbonate 25, anion gap of 9, BUN 27, creatinine 1, estimated GFR was 52 mL per minute. Her glucose 180, calcium was 8.6. Her white cell count was 14,900, hemoglobin 10.9, hematocrit 33, MCV 92, and platelet count 217,000. She did have markedly elevated D-dimer which was 5.59 mg/dL; however, her ventilation perfusion scan and ultimately, CT angio of the chest was negative for DVT. DISCHARGE MEDICATIONS: She will be discharged on following medications, Zithromax 250 mg once a day for 7 days and cefpodoxime 200 mg twice a day for 7 days. She is on calcium carbonate with vitamin D one tablet once a day, cetirizine 10 mg once a day, Advair Diskus 250/50 one inhalation twice a day, latanoprost 1 drop to both eyes at bedtime, metoprolol tartrate 50 mg once a day and multivitamin with mineral 1 tablet once a day. FINAL DISCHARGE DIAGNOSES: 1. Community-acquired pneumonia. 2. Bronchial asthma for chest pain, myocardial infarction ruled out as well as aortic dissection and pulmonary embolism. 3. She has hypertension for which she is on metoprolol. ELIO FERNANDEZ MD DR: DELFINO/haris JOB#: [id number] / [id number]
[2016-08-10] MEDS ORDERED: LISINOPRIL 2.5 MG TABLET PO SCH (21:00)
== END 2016-08-10 14:27 | disposition home or self-care (01) | DRG 871 ==
LOC: ER 09:48 → 1 SOUTH 10:58 → OBSVTOIN 08-09 22:36
PROVIDERS: ADMIT Internal Medicine; ATTEND Internal Medicine
DX: A41.9 Sepsis, unspecified organism (principal); N17.0 Acute kidney failure with tubular necrosis; J18.9 Pneumonia, unspecified organism; J45.909 Unspecified asthma, uncomplicated; Z96.652 Presence of left artificial knee joint; I10 Essential (primary) hypertension; R00.2 Palpitations; Z80.49 Family history of malignant neoplasm of other genital organs; Z85.828 Personal history of other malignant neoplasm of skin; Z90.710 Acquired absence of both cervix and uterus; Z98.41 Cataract extraction status, right eye; Z98.42 Cataract extraction status, left eye
CPT/HCPCS: 36415; 71010; 71275; 76705; 78582; 80048; 80061; 80076; 83690; 84484; 85007; 85027; 85379; 93005; 93306; 93970; 94640; 96374; A9540; A9558; G0378; G0379; J0456; J0696; J1650; J2270; J2920; J7620; Q9967; J7030

== ENCOUNTER → 2017-07-11 | Outpatient (CLI) | payer MEDICARE, BC, OTHER ==
[~2017-07-11] MED LIST changes: +AZIT250T PO; +CALC-56 PO; +CEFP200T PO; +CETI10TA16 PO; +FLUT1DIS3 IH; +LATA2.5D3 EACHEYE; +METO50TA6 PO; +MIRA50TA PO; +MULT-650 PO
--- NOTE | 2017-07-11 10:44 | RAD ---
2views of the right hand 07/11/2017 2:00 AM Indication: 4TH FINGER PAIN, NO KNOWN INJURY Comparison: None Findings: No evidence of acute fracture is identified. 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 More mild diffuse interphalangeal joint space narrowing is also seen. Ulnar subluxation is noted the second PIP joint, fourth PIP joint, and third PIP joint. Significant periarticular osteopenia is not seen. Mild soft tissue thickening surrounding the second PIP and fourth PIP joints noted. On lateral view there is mild dorsal subluxation of the fourth middle phalanx. 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 There is mild ulnar and dorsal subluxation at the fourth PIP joint
== END | disposition home or self-care (01) ==
LOC: PMG 10:01
PROVIDERS: ATTEND Physician Assistant
DX: S63.234A Subluxation of proximal interphalangeal joint of right ring finger, initial encounter (principal); M19.041 Primary osteoarthritis, right hand; X58.XXXA Exposure to other specified factors, initial encounter; Y93.89 Activity, other specified; Y92.89 Other specified places as the place of occurrence of the external cause; Y99.8 Other external cause status
CPT/HCPCS: 73140

== ENCOUNTER → 2017-08-22 | Outpatient (CLI) | payer MEDICARE, BC, OTHER ==
--- NOTE | 2017-08-22 11:09 | RAD ---
2 views right hip 08/22/2017 12:00 AM Indication: Low back pain leading to the right hip Comparison: None available Findings: There is no acute fracture or dislocation involving the right hip. Hypertrophic changes noted at the pubic symphysis. No acute soft tissue changes are identified. Impression: No radiographic evidence of acute osseous abnormality. Electronically signed by: Babar Bello MD (08/22/2017 11:06 AM) [id number]
--- NOTE | 2017-08-22 11:47 | RAD ---
EXAM: Lumbar spine, 3 views. HISTORY: Pain. COMPARISON: None. FINDINGS: Frontal, lateral and coned sacral views of the lumbar spine are obtained. There is 1 anterolisthesis of L4 on L5 and L5 on S1, and to lesser extent, L3 on L4. There is associated severe degenerative endplate remodeling with vacuum phenomenon and facet arthropathy at the lumbosacral junction. There is lumbar hyperlordosis. There is minimal lumbar levocurvature. There is extensive subchondral sclerosis involving the sacroiliac joints, suggesting sacroiliitis. IMPRESSION: 1. Grade 1 anterolisthesis of L4 on L5 and L5 on S1, and to lesser extent, L3 on L4. There is associated lumbar hyperlordosis and degenerative change primarily at the lumbosacral junction. 2. Mild lumbar scoliosis. 3. Suspected sacroiliitis. Electronically signed by: China Meadows MD (08/22/2017 11:44 AM) [id number]
== END | disposition home or self-care (01) ==
LOC: PMG 10:22
PROVIDERS: ATTEND Physician Assistant
DX: M41.86 Other forms of scoliosis, lumbar region (principal); M12.88 Other specific arthropathies, not elsewhere classified, other specified site
CPT/HCPCS: 72100; 73502

== ENCOUNTER → 2018-04-04 | Outpatient (CLI) | payer MEDICARE, BC, OTHER ==
--- NOTE | 2018-04-04 17:07 | RAD ---
EXAM: PA and Lateral Views of the Chest DATE: 04/04/2018 11:29 AM INDICATION: ABNORMAL BREATH SOUNDS, COUGH TIMES 11 DAYS COMPARISON: No Prior FINDINGS: The heart is not enlarged. Mediastinal and hilar contours are normal. No focal parenchymal airspace opacity. No pleural effusion or pneumothorax. Right apical pleural/parenchymal scarring/thickening. IMPRESSION: 1. No radiographic evidence for acute cardiopulmonary process. Electronically signed by: Sky Collins MD (04/04/2018 5:03 PM) [facility]
== END | disposition home or self-care (01) ==
LOC: PMG 11:15
PROVIDERS: ATTEND Registered Nurse
DX: R06.89 Other abnormalities of breathing (principal)
CPT/HCPCS: 71046

== ENCOUNTER → 2018-09-04 | Outpatient (CLI) | payer MEDICARE, OTHER | END | disposition home or self-care (01) | LOC: SURG 10:13 | PROVIDERS: ATTEND Anesthesiology Pain Medicine | DX: M46.1 Sacroiliitis, not elsewhere classified (principal); Z90.710 Acquired absence of both cervix and uterus; Z79.899 Other long term (current) drug therapy | CPT/HCPCS: 99214 ==

== ENCOUNTER → 2019-02-17 | Outpatient (CLI) | payer MEDICARE, BC, OTHER ==
--- NOTE | 2019-02-17 10:17 | RAD ---
Right lower extremity venous real time grayscale, color and spectral duplex ultrasound was performed. History: Right-sided leg pain Comparison: None The right common femoral, femoral, and popliteal veins demonstrate anechoic lumina, full compressibility, augmentable waveforms, and cephalad color Doppler flow. The posterior tibial are also patent. Greater saphenous vein is demonstrated. Impression: No evidence of DVT in the right lower extremity. Electronically signed by: Chago Gerardo MD (02/17/2019 10:14 AM) [id number]
== END | disposition home or self-care (01) ==
LOC: US 08:34
PROVIDERS: ATTEND Physician Assistant Medical
DX: M79.604 Pain in right leg (principal)
CPT/HCPCS: 93971

== ENCOUNTER 2019-03-31 04:43 | Emergency (ER) | payer MEDICARE, BC, OTHER ==
[~2019-03-31] VITALS: Ht 157.5 cm; Wt 78.9 kg
--- NOTE | 2019-03-31 05:24 | PHYS DOC ---
Past History Past Medical History: Asthma, Hypertension (ANTONIO MCMULLEN DO) Past Surgical History: Hysterectomy, Knee Replacement (ANTONIO MCMULLEN DO) Smoking: Non-smoker Alcohol Use: None Drug Use: None (ANTONIO MCMULLEN DO) Adult General Chief Complaint Chief Complaint: ABDOMINAL PAIN HPI HPI Patient is a 88-year-old female presents with diffuse cramping abdominal pain, nausea vomiting. Symptom onset was several hours prior to ED arrival is rated moderate to severe. Portably patient ate food that was refrigerator for greater than a month prior to symptoms beginning. Patient nauseated, diaphoretic on ED arrival. No chest pain palpitations shortness of breath. No other acute symptoms or complaints. Patient's computed at bedside by daughter. [] (ANTONIO MCMULLEN DO) Review of Systems Review of Systems Review symptoms as per history of present illness. All other review symptoms are negative. All other systems were reviewed and found to be within normal limits, except as documented in this note. (ANTONIO MCMULLEN DO) Current Medications Current Medications Current Medications Medications (Trade) Dose Ordered Sig/Brice Start Time Stop Time Status Last Admin Dose Admin Famotidine (Pepcid Vial) 20 mg 1X ONCE 03/31/19 05:15 03/31/19 05:16 UNV Fentanyl Citrate (Fentanyl 2ml Vial) 50 mcg 1X ONCE 03/31/19 05:15 03/31/19 05:16 UNV Ondansetron HCl (Zofran) 8 mg 1X ONCE 03/31/19 05:15 03/31/19 05:16 UNV (ANTONIO MCMULLEN DO) Allergies Allergies Allergies Coded Allergies Type Severity Reaction Last Updated Verified No Known Drug Allergies 05/29/15 No (ANTONIO MCMULLEN DO) Physical Exam Physical Exam Constitutional: Moderate discomfort secondary to pain, clammy, pale[] HENT: Normocephalic, atraumatic, bilateral external ears normal, oropharynx moist, no oral exudates, nose normal. [] Eyes: PERRLA, EOMI, conjunctiva normal, no discharge. [] Neck: Normal range of motion, no tenderness, supple, no stridor. [] Cardiovascular:Heart rate regular rhythm, no murmur [] Lungs & Thorax: Bilateral breath sounds clear to auscultation [] Abdomen: Bowel sounds normal, soft, no distention, increased bowel sounds, diffuse tenderness.[] Skin: Warm, dry, no erythema, no rash. [] Back: No tenderness. [] Extremities: No tenderness, no edema. [] Neurologic: Alert and oriented X 3, normal motor function, normal sensory function.. [] Psychologic: Affect, anxious. [] (ANTONIO MCMULLEN DO) Physical Exam Abdominal exam performed at 6:30 AM demonstrates diminished bowel sounds throughout with moderate tenderness to palpation in the right lower quadrant. (JANEY SHAIKH Jr. DO) Current Patient Data Lab Results Laboratory Tests Test 03/31/19 05:11 Glucose (Fingerstick) 163 mg/dL (70-99) H (ANTONIO MCMULLEN DO) EKG EKG [EKG: Reviewed] (ANTONIO MCMULLEN DO) Radiology/Procedures Radiology/Procedures [] (ANTONIO MCMULLEN DO) Impressions: PROCEDURE: CT ABD PELV W/ IV CONTRST ONLY Examination: CT of the abdomen pelvis with IV contrast HISTORY: History of abdominal pain COMPARISON: None available TECHNIQUE: Axial CT images of the abdomen and pelvis performed with IV contrast. Coronal and sagittal reformats are performed Exposure: One or more of the following individualized dose reduction techniques were utilized for this examination: 1. Automated exposure control 2. Adjustment of the mA and/or kV according to patient size 3. Use of iterative reconstruction technique FINDINGS: Mild bibasilar lung atelectasis. No evidence of free air identified in the abdomen. The liver, adrenals grossly appears unremarkable. The gallbladder is mildly distended. Small amount of free fluid identified in the perihepatic and perisplenic region. A linear cleft identified in the spleen. The stomach is minimally distended. The visualized pancreas demonstrate mild prominent pancreatic duct. Mild dilated small bowel loops identified in the pelvis with surrounding inflammatory fat stranding. There is transition point identified in the mid low pelvis best visualized on series 2 image 70. Feces and gas noted in the colon. Numerous colonic diverticulosis identified Urinary bladder is mildly distended. The bilateral kidneys enhance symmetrically. There is a small cystic structure identified in the right kidney measuring 1.1 cm. Few left renal peripelvic cysts are again identified. Moderate degenerative changes thoracal lumbar spine. Sclerotic changes identified at the the bilateral SI joints likely degenerative changes. IMPRESSION: 1. Multiple dilated small bowel loops identified in the lower abdomen and pelvis with a transition point identified in the mid pelvis best visualized on series 2 image 70 likely small bowel obstruction with enhancement and fat stranding about the dilated small bowel loops. 2. Mild perisplenic, perihepatic and pelvic fluid identified. 3. Numerous colonic diverticulosis. Electronically signed by: Richard Block MD (03/31/2019 8:47 AM) [id number] (JANEY SHAIKH Jr., DO) Course & Med Decision Making Course & Med Decision Making Pertinent Labs and Imaging studies reviewed. (See chart for details) [Blood sugar, EKG, reviewed. Labs ordered and pending. Pain and nausea distress. Workup is in progress. Patient will be transition to oncoming [facility] at 06:00 for further evaluation and disposition.] (ANTONIO MCMULLEN DO) Dragon Disclaimer Dragon Disclaimer This electronic medical record was generated, in whole or in part, using a voice recognition dictation system. (ANTONIO MCMULLEN DO) Departure Departure: Impression: Primary Impression: Abdominal pain Additional Impressions: Nausea and vomiting Small bowel obstruction Disposition: 02 XFER [facility] Admitting Physician: Marisela Mora (JANEY SHAIKH Jr., DO) Condition: IMPROVED Referrals: URIEL VARGAS (PCP) Problem Qualifiers ANTONIO MCMULLEN DO Mar 31, 2019 05:24 JANEY SHAIKH Jr., DO Mar 31, 2019 06:49
[2019-03-31] MEDS ORDERED: ONDANSETRON PF 4 MG/2 ML VIAL. IVP ONE (05:30)
[2019-03-31] MEDS ORDERED: FAMOTIDINE 20 MG/2 ML VIAL IVP ONE (05:30)
--- NOTE | 2019-03-31 06:01 | EKG ---
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
[2019-03-31] MEDS ORDERED: MORPHINE SULFATE 2 MG/ML DISP.SYRIN. IV ONE (06:15)
[2019-03-31 07:10] LABS: BASO # 0.1 x10^3/uL (0.0-0.2); BASO % 1 % (0-3); EOS % 0 % (0-3); HEMATOCRIT 42.8 % (36.0-47.0); HEMOGLOBIN 14.1 g/dL (12.0-15.5); LYMPH # 1.5 x10^3/uL (1.0-4.8); LYMPH % 8 % (24-48); MEAN CORPUSCULAR HEMOGLOBIN 31 pg (25-35); MEAN CORPUSCULAR HGB CONC 33 g/dL (31-37); MEAN CORPUSCULAR VOLUME 94 fL (79-100); MONO # 0.7 x10^3/uL (0.0-1.1); MONO % 4 % (0-9); NEUT # 16.7 x10^3uL (1.8-7.7); NEUT % 88 % (31-73); PLATELET COUNT 279 x10^3/uL (140-400); RED BLOOD COUNT 4.57 x10^6/uL (3.50-5.40); RED CELL DISTRIBUTION WIDTH 12.1 % (11.5-14.5)
[2019-03-31 07:28] LABS: CALCIUM 9.8 mg/dL (8.5-10.1); CREATININE 1.2 mg/dL (0.6-1.0); GFR 42.3; POTASSIUM 4.3 mmol/L (3.5-5.1)
[2019-03-31] MEDS ORDERED: HYDROmorphone PF 1 MG/ML DISP.SYRIN IV ONE ×2 (07:30→09:30)
[2019-03-31 07:31] LABS: BACTERIA,URINE MANY /HPF (0-FEW); BILIRUBIN,URINE NEG (NEG); CLARITY,URINE HAZY; COLOR,URINE YELLOW; GLUCOSE,URINE NEG (NEG); NITRITE,URINE POS (NEG); SQUAMOUS EPITHELIAL CELL,UR FEW /LPF; UROBILINOGEN,URINE 0.2 mg/dL (0.2 mg/dL)
[2019-03-31 07:32] LABS: HYALINE CASTS, URINE FEW /HPF; YEAST,URINE PRESENT /HPF
[2019-03-31 07:34] LABS: ALBUMIN 3.5 g/dL (3.4-5.0); TOTAL BILIRUBIN 0.3 mg/dL (0.2-1.0)
[2019-03-31] MEDS ORDERED: IV NORMAL SALINE 500ML 500 ML IV ONE (07:45)
[2019-03-31 07:49] LABS: % BANDS 2 % (0-9); % LYMPHS 13 % (24-48); % MONOS 3 % (0-10); % SEGS 82 % (35-66); PLT ESTIMATE ADEQUATE (ADEQUATE)
[2019-03-31 07:50] LABS: TOXIC GRANULATION SLIGHT; TOXIC VACUOLATION SLIGHT
[2019-03-31] MEDS ORDERED: IOHEXOL 300 MG/ML 75 ML VIAL. IV ONE (08:00)
[2019-03-31] MEDS ORDERED: CONTRAST GIVEN MC PRN (08:00)
--- NOTE | 2019-03-31 08:50 | RAD ---
Examination: CT of the abdomen pelvis with IV contrast HISTORY: History of abdominal pain COMPARISON: None available TECHNIQUE: Axial CT images of the abdomen and pelvis performed with IV contrast. Coronal and sagittal reformats are performed Exposure: One or more of the following individualized dose reduction techniques were utilized for this examination: 1. Automated exposure control 2. Adjustment of the mA and/or kV according to patient size 3. Use of iterative reconstruction technique FINDINGS: Mild bibasilar lung atelectasis. No evidence of free air identified in the abdomen. The liver, adrenals grossly appears unremarkable. The gallbladder is mildly distended. Small amount of free fluid identified in the perihepatic and perisplenic region. A linear cleft identified in the spleen. The stomach is minimally distended. The visualized pancreas demonstrate mild prominent pancreatic duct. Mild dilated small bowel loops identified in the pelvis with surrounding inflammatory fat stranding. There is transition point identified in the mid low pelvis best visualized on series 2 image 70. Feces and gas noted in the colon. Numerous colonic diverticulosis identified Urinary bladder is mildly distended. The bilateral kidneys enhance symmetrically. There is a small cystic structure identified in the right kidney measuring 1.1 cm. Few left renal peripelvic cysts are again identified. Moderate degenerative changes thoracal lumbar spine. Sclerotic changes identified at the the bilateral SI joints likely degenerative changes. IMPRESSION: 1. Multiple dilated small bowel loops identified in the lower abdomen and pelvis with a transition point identified in the mid pelvis best visualized on series 2 image 70 likely small bowel obstruction with enhancement and fat stranding about the dilated small bowel loops. 2. Mild perisplenic, perihepatic and pelvic fluid identified. 3. Numerous colonic diverticulosis. Electronically signed by: Richard Block MD (03/31/2019 8:47 AM) [id number]
[2019-03-31 09:38] VITALS: BP 154/69
== END 2019-03-31 10:10 | disposition short-term general hospital (02) ==
LOC: ER 04:43
DX: K56.609 Unspecified intestinal obstruction, unspecified as to partial versus complete obstruction (principal); K57.30 Diverticulosis of large intestine without perforation or abscess without bleeding; R11.2 Nausea with vomiting, unspecified; J45.909 Unspecified asthma, uncomplicated; I10 Essential (primary) hypertension; Z90.710 Acquired absence of both cervix and uterus
CPT/HCPCS: 36415; 74177; 80053; 81001; 82947; 83690; 84484; 85007; 85025; 87086; 93005; 96361; 96374; 96375; 96376; 99285; J1170; J2270; J2405; J3010; J3490; J7040; P9612